=== PATIENT | male | born 1985 | race Caucasian/White ===

== ENCOUNTER 2018-10-29 11:32 | Emergency (ER) | payer BC ==
[2018-10-29] MEDS ORDERED: Ondansetron 4 MG/2 ML SDV IVPUSH ONE (12:14)
[2018-10-29] MEDS ORDERED: HYDROmorphone 0.5 MG/0.5 ML Syringe IVPUSH ONE (12:14)
[2018-10-29] MEDS ORDERED: Dextrose 5%-0.9% NaCl 1,000 ML IV SCH (12:15)
--- NOTE | 2018-10-29 12:16 | EDM.PDOC ---
ED HPI GENERAL MEDICAL PROBLEM - General Chief Complaint: Abdominal Pain Stated Complaint: ABDOMINAL PAIN [place] SENT OVER Time Seen by Provider: 10/29/18 12:11 Source of Information: Reports: Patient History Limitations: Reports: No Limitations - History of Present Illness INITIAL COMMENTS - FREE TEXT/NARRATIVE: 33-year-old male presents to the ED with left upper mid abdominal pain of sudden 24 hours duration. He believe it came on about 1500 hrs. yesterday. Pain is constant with a mild colicky component. Does not radiate through to his back. Associated nausea is not sure he wants to eat. He did have a solid meal last at about 1730 hrs. Did have a normal formed bowel movement yesterday without any blood. [place] chilled after vomiting at 3:30 this morning. He vomited up the food that he had eaten for supper last night. No defined fever. No previous abdominal surgery. No medications. 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 Of note the patient had a similar type pain last Monday I week ago that lasted for a day or so and then got better. Onset: Sudden Onset Date: 10/28/18 Onset Time: 15:00 Duration: Hour(s):, Constant, Getting Worse Location: Reports: Abdomen (Left upper mid abdomen.) Quality: Reports: Ache, Other (Deep aching pain with occasional mild colicky component) Severity: Moderate (Current pain is rated as 4-10) Improves with: Reports: None Worsens with: Reports: None, Eating (Afraid to eat.) Context: Reports: Other (Spontaneous occurrence). Denies: Activity, Exercise ( Mildly nauseated), Lifting, Sick Contact, Trauma Associated Symptoms: Reports: Nausea/Vomiting (Nausea without vomiting) Treatments TECHNICAL ANALYST: Reports: Other (see below) (None.) Abdominal Pain Score (Numeric/FACES): 5 - Related Data Allergies Allergy/AdvReac Type Severity Reaction Status Date / Time No Known Allergies Allergy Verified 10/29/18 11:53 Home Meds: Home Meds Amoxicillin/Clavulanate K [Augmentin 600-42.9 MG/5 ML Susp] 1,200 mg PO BID #40 ml 10/29/18 [Rx] Ondansetron [Zofran] 4 mg BUCCAL Q6H PRN #5 tab 09/02/19 [Rx] Social & Family History - Living Situation & Occupation Living situation: Reports: Single Occupation: Employed ED ROS GENERAL - Review of Systems Review Of Systems: See Below Constitutional: Reports: Chills, Malaise, Decreased Appetite HEENT: Reports: No Symptoms Respiratory: Reports: No Symptoms Cardiovascular: Reports: No Symptoms Endocrine: Reports: No Symptoms GI/Abdominal: Reports: Abdominal Pain (See history of present illness.), Flatus. Denies: Constipation, Distension : Reports: No Symptoms Musculoskeletal: Reports: No Symptoms Skin: Reports: No Symptoms Neurological: Reports: No Symptoms Psychiatric: Reports: No Symptoms Hematologic/Lymphatic: Reports: No Symptoms Immunologic: Reports: No Symptoms ED EXAM, GI/ABD - Physical Exam Exam: See Below Exam Limited By: No Limitations General Appearance: Alert, WD/WN, No Apparent Distress, Other (Vital signs are normal with temperature 36.2. Pulse is 63 and sinus respiratory is 18 sats are 98% BP mildly elevated 145/87.) Eyes: Bilateral: Normal Appearance (She is no scleral icterus.) Throat/Mouth: Other (Tongue is mildly dry and coated) Head: Atraumatic, Normocephalic Neck: Normal Inspection, Supple, Non-Tender, Full Range of Motion. No: Lymphadenopathy (L), Lymphadenopathy (R) Respiratory/Chest: No Respiratory Distress, Lungs Clear, Normal Breath Sounds, No Accessory Muscle Use Cardiovascular: Normal Peripheral Pulses, Regular Rate, Rhythm, No Edema, No Gallop, No Murmur, No Rub GI/Abdominal Exam: Soft, No Organomegaly, No Mass, Pelvis Stable, Tender ( Mildly tender left mid-lateral abdomen.), Abnormal Bowel Sounds (Bowel sounds are fairly quiet sent in all 4 quadrants.). No: Guarding, Rigid, Rebound (Male) Exam: No Hernia Back Exam: Normal Inspection, Full Range of Motion. No: CVA Tenderness (L), CVA Tenderness (R) Extremities: Normal Inspection, Normal Range of Motion, Non-Tender, No Pedal Edema Neurological: Alert, Oriented, CN II-XII Intact, Normal Cognition Psychiatric: Normal Affect, Normal Mood Skin Exam: Warm, Dry, Intact, Normal Color, No Rash Course - Vital Signs Last Recorded V/S: Last Vital Signs Temp 36.2 C 10/29/18 11:48 Pulse 63 10/29/18 11:48 Resp 18 10/29/18 11:48 BP 145/87 H 10/29/18 11:48 Pulse Ox 98 10/29/18 11:48 - Orders/Labs/Meds Orders: Active Orders 24 hr Category Date Time Status Abdomen 1V Flat [CR] Stat Exams 10/29/18 12:13 Taken Labs: Laboratory Tests 10/29/18 10/29/18 10/29/18 Range/Units 12:35 12:35 13:00 WBC 15.65 H (4.23-9.07) K/mm3 RBC 5.66 (4.63-6.08) M/mm3 Hgb 16.5 (13.7-17.5) gm/L Hct 48.7 (40.1-51.0) % MCV 86.0 (79.0-92.2) fl MCH 29.2 (25.7-32.2) pg MCHC 33.9 (32.2-35.5) g/dl RDW Std Deviation 40.6 (35.1-43.9) fL Plt Count 382 H (163-337) K/mm3 MPV 9.1 L (9.4-12.3) fl Neut % (Auto) 87.5 H (34.0-67.9) % Lymph % (Auto) 6.3 L (21.8-53.1) % [place] % (Auto) 5.8 (5.3-12.2) % Eos % (Auto) 0 L (0.8-7.0) Baso % (Auto) 0.1 (0.1-1.2) % Neut # (Auto) 13.70 H (1.78-5.38) K/mm3 Lymph # (Auto) 0.99 L (1.32-3.57) K/mm3 [place] # (Auto) 0.91 H (0.30-0.82) K/mm3 Eos # (Auto) 0.00 L (0.04-0.54) K/mm3 Baso # (Auto) 0.01 (0.01-0.08) K/mm3 Manual Slide Review Abnormal smear Sodium 138 (136-145) mEq/L Potassium 3.8 (3.5-5.1) mEq/L Chloride 100 (98-107) mEq/L Carbon Dioxide 31 (21-32) mEq/L Anion Gap 10.8 (5-15) BUN 8 (7-18) mg/dL Creatinine 1.0 (0.7-1.3) mg/dL Est Cr Clr Drug Dosing 109.50 mL/min Estimated GFR (MDRD) > 60 (>60) mL/min BUN/Creatinine Ratio 8.0 L (14-18) Glucose 120 H (74-106) mg/dL Calcium 9.6 (8.5-10.1) mg/dL Total Bilirubin 0.5 (0.2-1.0) mg/dL AST 13 L (15-37) U/L ALT 23 (16-63) U/L Alkaline Phosphatase 139 H (46-116) U/L C-Reactive Protein 3.4 H* (<1.0) mg/dL Total Protein 8.6 H (6.4-8.2) g/dl Albumin 3.9 (3.4-5.0) g/dl Globulin 4.7 gm/dL Albumin/Globulin Ratio 0.8 L (1-2) Lipase 113 (73-393) U/L Urine Color Yellow (Yellow) Urine Appearance Clear (Clear) Urine pH 6.5 (5.0-8.0) Ur Specific [place] 1.015 (1.005-1.030) Urine Protein Negative (Negative) Urine Glucose (UA) Negative (Negative) Urine Ketones Negative (Negative) Urine Occult Blood Trace-lysed H (Negative) Urine Nitrite Negative (Negative) Urine Bilirubin Negative (Negative) Urine Urobilinogen 0.2 (0.2-1.0) Ur Leukocyte Esterase Negative (Negative) Urine RBC 0-5 (0-5) /hpf Urine WBC 0-5 (0-5) /hpf Ur Epithelial Cells Not seen (0-5) /hpf Urine Bacteria Few (FEW) /hpf Urine Mucus Not seen (FEW) /hpf Meds: Medications Discontinued Medications Generic Name Dose Route Start Last Admin Trade Name Freq PRN Reason Stop Dose Admin Amoxicillin/Clavulanate Potassium 1,200 mg 10/29/18 15:38 10/29/18 15:51 Augmentin 600-42.9 Mg/5 Ml Susp PO 10/29/18 15:39 10 ml ONETIME ONE Administration Hydromorphone HCl 0.5 mg 10/29/18 12:14 10/29/18 12:31 Dilaudid IVPUSH 10/29/18 12:15 0.5 mg ONETIME ONE Administration Dextrose/Sodium Chloride 1,000 mls @ 999 mls/hr 10/29/18 12:15 10/29/18 12:29 Dextrose 5%-Normal Saline IV 999 mls/hr ASDIRECTED ROE Administration Potassium Cl/Dextrose/Lact Ringer's 1,000 mls @ 125 mls/hr 10/29/18 13:45 D5 Lr With 20 Meq Kcl IV ASDIRECTED ROE Iopamidol 100 ml 10/29/18 14:52 10/29/18 15:03 Isovue-300 (61%) IVPUSH 10/29/18 14:53 100 ml ONETIME ONE Administration Ondansetron HCl 4 mg 10/29/18 12:14 10/29/18 12:31 Zofran IVPUSH 10/29/18 12:15 4 mg ONETIME ONE Administration Sodium Chloride 10 ml 10/29/18 14:52 10/29/18 15:04 Saline Flush FLUSH 10 ml ONETIME PRN Administration IV FLUSH - Radiology Interpretation Free Text/Narrative:: 33-year-old male attends the ED with his mother. He complains of nausea and vomiting about 0330 hrs. this morning where he vomited up her supper that he had eaten last night at 1730 hrs. Otherwise bilious emesis. Afraid to eat today. Has a constant pain in his left lateral mid abdomen. Radiation of the pain. Slight colicky component to the pain. Normal bowel movement yesterday. No diarrhea. Passing flatus today. No previous abdominal surgery. Bowel sounds are few and far between on examination. Very minimally tender left lateral abdomen. No guarding or rebound or peritoneal signs. Plan IV D5 normal saline at open. Will give him Dilaudid 0.5 mg IV for pain relief and Zofran 4 mg IV for nausea relief. Routine labs to be done to include serum lipase. One view of the abdomen to be done and a urinalysis. - Re-Assessments/Exams Free Text/Narrative Re-Assessment/Exam: 10/29/18 12:54 Lab tests reveal an elevated white count at 15.65. Auto differential is 87.5% neutrophils. Hemoglobin is 16.5 with hematocrit of 48.7. Platelet count is 382,000. AV reveals increased stool throughout the entire right hemicolon. There is a mild amount of stool in the left hemicolon and a bit in the rectal vault. There are no signs of bowel obstruction. Within markedly elevated white count and left shift I will likely pursue CT of the head with oral and IV contrast. 10/29/18 13:36 Review of the slide reveals no bandemia. Sodium 138 with potassium of 3.8. Cord 100 with a bicarbonate 31. Anion gap is 10.8. BUN is 8 with a cranial 1.0. GFR is greater than 60. Glucose is 120. Calcium is 9.6. Total bilirubin is 0.5. AST is 13 with an ALT of 23. Alk phosphatase minimally elevated at 139 C-reactive protein is elevated at 3.4. Total protein is 8.6. Albumin fraction is 3.9. Lipase normal at 113. Urinalysis shows trace of lysed blood only. 10/29/18 13:40 Patient feels much better and less pain and no further nausea. We 'll proceed with CT the abdomen with oral and IV contrast to look for potential source of intra-abdominal infection such as diverticulitis. Patient and mother advised in this regard. Free Text/Narrative Re-Assessment/Exam: 10/29/18 15:21 CT the abdomen and pelvis has been completed with IV and oral contrast. Visualized portions of the lungs appear to be clear. Visualized portion of the heart appear normal. Liver is homogeneous without any intraductal dilatation. Gallbladder contains no calcified gallstones. Pancreas is normal stomach fills well with contrast. It appears to be some thickening of the duodenum on CT. This is suggestive of a due to tinnitus. Spleen is normal. Adrenal glands appear normal both kidneys and ureters are normal. There is increased stool throughout the right hemicolon . There are few diverticula of the sigmoid colon but I could not identify any specific area of diverticulitis. Bladder wall is somewhat thickened but urinalysis is normal with no evidence of cystitis. I'm awaiting the radiologist's report in this regard. 10/29/18 15:42 radiologist agrees with my visualization of the CT. He agrees that he can see the appendix well with it and felt to be within normal limits. He appreciates light wall thickening within the duodenum with minimal surrounding inflammatory change but with mild duodenitis. Going to place him on Augmentin suspension as he can't swallow tablets. I will place him on 10 mils of the 600 mg/42.5 mg strength twice daily for the next [address] him on oral Prilosec which she has already in the liquid form. he has not taken it for about a week. Departure - Departure Time of Disposition: 15:46 Disposition: Home, Self-Care 01 Condition: Fair Clinical Impression: Duodenitis Nausea and vomiting Qualifiers: Vomiting type: bilious vomiting Qualified Code(s): R11.14 - Bilious vomiting - Discharge Information *PRESCRIPTION DRUG MONITORING PROGRAM REVIEWED*: Not Applicable *COPY OF PRESCRIPTION DRUG MONITORING REPORT IN PATIENT [facility]: Not Applicable Prescriptions: Amoxicillin/Clavulanate K [Augmentin 600-42.9 MG/5 ML Susp] 1,200 mg PO BID #40 ml Ondansetron [Zofran] 4 mg BUCCAL Q6H PRN #5 tab PRN Reason: nausea or vomiting Instructions: Nausea and Vomiting, Adult, [id number], Nausea and Vomiting, Adult Referrals: PCP,None [Primary Care Provider] - Forms: ED Department Discharge Additional Instructions: Evaluation in the emergency room today in regards to development of left upper mid abdominal pain associate with development of nausea and vomiting during the night. Low-grade fever. White blood cell count was found to be elevated suggestive of an underlying infective process. Markers for inflammation were also elevated suggestive of an infection. Therefore CT the abdomen was performed and it reveals inflammation around the duodenum which is the first part of the small bowel at Your stomach. There was no sign of appendicitis and the appendix was well-visualized. Similarly no signs of diverticulitis are identified either. Treatment is therefore with antibiotic suspension Augmentin 600 mg per 5 mils with 42.5 mils of clavulanic acid. Take 10 mils of this medication twice daily for the next 8 days to clear up infection. You need to restart your omeprazole suspension daily for at least 10 days in a row. I've written a prescription for Zofran which can take under the tongue every 4-6 hours as needed for relief of any nausea so that you don't vomit anymore. Plenty of fluids today such as Gatorade or Powerade to rehydrate and then suggest a light diet such as turkey rice or chicken noodle soup etc. Follow-up with personal care physician or return to the ED if not markedly improved in 72 hours time. Also likely going to move 2 or 3 times after the oral contrast goes through the colon which should relieve some of the right-sided constipation identified on x-ray and on CT. - My Orders Last 24 Hours: My Active Orders 10/29/18 12:13 Abdomen 1V Flat [CR] Stat - Assessment/Plan Last 24 Hours: My Active Orders 10/29/18 12:13 Abdomen 1V Flat [CR] Stat
[2018-10-29] MEDS ORDERED: Dextrose 5%-Lact Ringers w/KCl 1,000 ML IV SCH (13:45)
[2018-10-29] MEDS ORDERED: Sodium Chloride 0.9% 10 ML Syringe FLUSH PRN (14:52)
[2018-10-29] MEDS ORDERED: Iopamidol 612 MG/ML 100 ML Bottle IVPUSH ONE (14:52)
--- NOTE | 2018-10-29 15:32 | CT ---
CT abdomen and pelvis Technique: Multiple axial sections were obtained from above the dome of the diaphragm inferiorly through the pubic symphysis. Intravenous and oral contrast was utilized. Delayed images were also obtained through the bladder. Findings: Appendix is seen and is felt to be within normal limits. Visualized portions of the lung bases show nothing acute. Liver shows no focal parenchymal abnormality. Spleen appears within normal limits. Gallbladder contains no calcified gallstones. Small moderate gastroesophageal reflux is seen within the distal esophagus. Slight wall thickening appears to be present within the duodenum with minimal surrounding inflammatory change and mild duodenitis is a possibility. Pancreas appears within normal limits. Aorta shows no aneurysm. No retroperitoneal adenopathy or mesenteric abnormalities are seen. No pelvic mass or adenopathy is noted. No free fluid is seen. No other inflammatory change is identified. Delayed images shows contrast within the distal ureters and bladder. Bone window settings were reviewed which appear within normal limits for the patient's age. Impression: 1. Wall thickening within the duodenum with slight surrounding inflammatory change. Mild duodenitis is difficult to exclude. 2. Small amount of gastroesophageal reflux. 3. No additional abnormality is appreciated on CT study of the abdomen and pelvis. Diagnostic code #3
[2018-10-29] MEDS ORDERED: Amoxicillin/Clavulanate K 600-42.9 MG/5 ML Susp 125 ML Bottle PO ONE (15:38)
--- NOTE | 2018-10-30 06:54 | CR ---
Abdomen: Supine view of the abdomen was obtained. Focal stool is seen within the right colon. Bowel gas pattern is normal. Vague calcific type densities are seen within the left abdomen most likely due to bowel content. Calcification is noted within the left side of the pelvis which is most likely due to phlebolith. Bony structures appear within normal limits for the patient's age. No discrete soft tissue abnormality is appreciated. Impression: 1. Incidental findings as described above. Nothing acute is identified. Diagnostic code #2
== END 2018-10-29 16:09 | disposition home or self-care (01) ==
LOC: JD.ED 11:32
DX: K29.80 Duodenitis without bleeding (principal)
CPT/HCPCS: 36415; 74018; 74177; 80053; 81001; 83690; 85025; 86140; 96361; 96374; 96375; 99284; A9270; J1170; J2405; J7042; Q9967